=== PATIENT | female | born 1980 | race Caucasian/White ===

== ENCOUNTER → 2016-11-14 | Outpatient (CLI) | payer OTHER ==
[2016-11-14 19:42] LABS: THYROID PEROXIDASE ANTIBODY < 28.0 U/ML (<60.0)
[2016-11-14 20:06] LABS: FREE T4 1.19 NG/DL (0.76-1.46)
== END ==
LOC: M SMT 11:48
PROVIDERS: ATTEND Physician Assistant
DX: E03.9 Hypothyroidism, unspecified (principal)

== ENCOUNTER → 2016-11-23 | Outpatient (CLI) | payer OTHER ==
--- NOTE | 2016-11-23 11:25 | REP ---
MRI LEFT KNEE: TECHNIQUE: Axial proton density fat saturation, sagittal proton density T2 STIR, water excitation, coronal proton density, proton density fat saturation. There is a somewhat complex tear of the posterior horn of the medial meniscus. The lateral meniscus appears intact. The cruciate and collateral ligaments are intact. The extensor mechanism is intact. 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 There is moderate chondromalacia along the medial femoral condyle. There is otherwise mild global chondromalacia without focal osteochrondral defect. There is no significant marrow edema. There is no occult fracture. There is a small joint effusion. A small amount of fluid extends into the medial popliteal fossa with a relatively thin band of fluid having a craniocaudal dimension of about 9 cm, but a thickness of only about 1 cm maximally. IMPRESSION: Complex tear posterior horn medial meniscus. Cruciate and collateral ligaments intact. Chondromalacia as above, most significantly along the medial patellar facet and medial femoral condyle. Small joint effusion with a thin band of fluid in the medial popliteal fossa. Signed by Richar Obrien MD 11/23/2016 05:36 P
== END ==
LOC: M RAD 08:56
PROVIDERS: ATTEND Orthopaedic Surgery
DX: S83.209A Unspecified tear of unspecified meniscus, current injury, unspecified knee, initial encounter (principal)

== ENCOUNTER → 2017-10-28 | Outpatient (CLI) | payer OTHER ==
[2017-10-28 14:48] LABS: BASO % 0.2 % (0.0-1.0); EOS # 0.1 10^3/uL (0.0-0.50); EOS % 1.2 % (0.0-3.0); HEMATOCRIT 42.3 % (36.0-47.0); HEMOGLOBIN 13.8 g/dl (12.0-16.0); IMMATURE GRANULOCYTE % 0.2 % (0-3.0); LYMPH # 3.7 10^3/uL (1.5-4.5); LYMPH % 41.2 % (24.0-44.0); MEAN CORPUSCULAR HEMOGLOBIN 28.2 pg (27.0-33.0); MEAN CORPUSCULAR HGB CONC 32.6 g/dl (32.0-36.5); MEAN CORPUSCULAR VOLUME 86.3 fl (80.0-96.0); MONO # 0.6 10^3/uL (0.0-0.8); MONO % 6.3 % (0.0-5.0); NEUTROPHILS # 4.5 10^3/uL (1.8-7.7); NEUTROPHILS % 50.9 % (36.0-66.0); PLATELET COUNT, AUTOMATED 369 10^3/uL (150-450); WHITE BLOOD COUNT 8.9 10^3/uL (4.0-10.0)
[2017-10-28 15:17] LABS: ALBUMIN 3.7 GM/DL (3.2-5.2); ALBUMIN/GLOBULIN RATIO 1.09 (1.00-1.93); ALKALINE PHOSPHATASE 73 U/L (45-117); ALT/SGPT 19 U/L (12-78); ANION GAP 6 MEQ/L (8-16); AST/SGOT 16 U/L (7-37); BILIRUBIN,TOTAL 0.5 MG/DL (0.2-1.0); BLOOD UREA NITROGEN 12 MG/DL (7-18); CALCIUM LEVEL 8.5 MG/DL (8.5-10.1); CARBON DIOXIDE LEVEL 27 MEQ/L (21-32); CHLORIDE LEVEL 105 MEQ/L (98-107); CHOLESTEROL LEVEL 175 MG/DL (<200); CHOLESTEROL RISK RATIO 3.723 (<5); CREATININE FOR GFR 0.92 MG/DL (0.55-1.30); FREE T4 1.09 NG/DL (0.76-1.46); GLOMERULAR FILTRATION RATE > 60.0 (>60); GLUCOSE, FASTING 76 MG/DL (70-100); HDL CHOLESTEROL 47 MG/DL (>40); LDL CHOLESTEROL 109.4 MG/DL (<100); NON-HDL-C 128 MG/DL; POTASSIUM SERUM 4.3 MEQ/L (3.5-5.1); SODIUM LEVEL 138 MEQ/L (136-145); TOTAL PROTEIN 7.1 GM/DL (6.4-8.2); TRIGLYCERIDES LEVEL 93 MG/DL (<150)
[2017-10-28 15:25] LABS: TOTAL 25(OH) VITAMIN D 16.5 NG/ML (30.0-100.0)
== END ==
LOC: M LAB 13:46
DX: Z00.00 Encounter for general adult medical examination without abnormal findings (principal); Z13.220 Encounter for screening for lipoid disorders; Z13.21 Encounter for screening for nutritional disorder; E04.2 Nontoxic multinodular goiter; E03.9 Hypothyroidism, unspecified
CPT/HCPCS: 76536

== ENCOUNTER → 2017-12-19 | Outpatient (CLI) | payer OTHER ==
[2017-12-19 14:28] LABS: FREE T4 1.28 NG/DL (0.76-1.46)
== END ==
LOC: M LAB 12:42
DX: E03.9 Hypothyroidism, unspecified (principal)
CPT/HCPCS: 84443

== ENCOUNTER → 2018-03-12 | Outpatient (CLI) | payer OTHER ==
[2018-03-12 13:56] LABS: FREE T4 1.31 NG/DL (0.76-1.46)
[2018-03-12 14:12] LABS: THYROID PEROXIDASE ANTIBODY < 28.0 U/ML (<60.0)
[2018-03-14 09:39] LABS: TSH RECEPTOR ASSAY <0.50 IU/L (0.00-1.75)
== END ==
LOC: M SMT 10:29
DX: E03.9 Hypothyroidism, unspecified (principal)
CPT/HCPCS: 84443

== ENCOUNTER → 2018-05-13 | Outpatient (CLI) | payer OTHER ==
[2018-05-13 13:24] LABS: BASO % 0.4 % (0.0-1.0); EOS # 0.1 10^3/uL (0.0-0.50); EOS % 1.2 % (0.0-3.0); HEMATOCRIT 45.6 % (36.0-47.0); HEMOGLOBIN 14.9 g/dl (12.0-15.5); IMMATURE GRANULOCYTE % 0.2 % (0-3.0); LYMPH % 35.4 % (24.0-44.0); MEAN CORPUSCULAR HEMOGLOBIN 28.2 pg (27.0-33.0); MEAN CORPUSCULAR HGB CONC 32.7 g/dl (32.0-36.5); MEAN CORPUSCULAR VOLUME 86.2 fl (80.0-96.0); MONO # 0.5 10^3/uL (0.0-0.8); MONO % 6.5 % (0.0-5.0); NEUTROPHILS # 4.7 10^3/uL (1.8-7.7); NEUTROPHILS % 56.3 % (36.0-66.0); PLATELET COUNT, AUTOMATED 397 10^3/uL (150-450); RED BLOOD COUNT 5.29 10^6/uL (4.00-5.40); RED CELL DISTRIBUTION WIDTH 12.3 % (11.5-14.5); WHITE BLOOD COUNT 8.3 10^3/uL (4.0-10.0)
[2018-05-13 14:44] LABS: ANION GAP 11 MEQ/L (8-16); BLOOD UREA NITROGEN 14 MG/DL (7-18); CALCIUM LEVEL 9.5 MG/DL (8.5-10.1); CARBON DIOXIDE LEVEL 26 MEQ/L (21-32); CHLORIDE LEVEL 102 MEQ/L (98-107); CHOLESTEROL LEVEL 215 MG/DL (<200); CHOLESTEROL RISK RATIO 4.134 (<5); CREATININE FOR GFR 0.98 MG/DL (0.55-1.30); FREE T4 1.54 NG/DL (0.76-1.46); GLOMERULAR FILTRATION RATE > 60.0 (>60); GLUCOSE, FASTING 82 MG/DL (70-100); HDL CHOLESTEROL 52 MG/DL (>40); LDL CHOLESTEROL 143 MG/DL (<100); NON-HDL-C 163 MG/DL; POTASSIUM SERUM 4.6 MEQ/L (3.5-5.1); SODIUM LEVEL 139 MEQ/L (136-145); TOTAL 25(OH) VITAMIN D 38.7 NG/ML (30.0-100.0); TRIGLYCERIDES LEVEL 101 MG/DL (<150)
== END ==
LOC: M SMT 10:23
DX: E03.9 Hypothyroidism, unspecified (principal); E55.9 Vitamin D deficiency, unspecified
CPT/HCPCS: 84443

== ENCOUNTER → 2018-09-26 | Outpatient (CLI) | payer OTHER ==
[2018-09-26 13:34] LABS: FREE T4 1.5 NG/DL (0.76-1.46); THYROID STIMULATING HORMONE 1.04 uIU/ML (0.358-3.740)
[2018-09-26 13:48] LABS: TOTAL 25(OH) VITAMIN D 49.7 NG/ML (30.0-100.0)
== END ==
LOC: M SMT 10:45
PROVIDERS: ATTEND Family Medicine
DX: E03.9 Hypothyroidism, unspecified (principal); E55.9 Vitamin D deficiency, unspecified

== ENCOUNTER → 2019-04-09 | Outpatient (CLI) | payer OTHER ==
[2019-04-09 14:03] LABS: FREE T4 1.29 NG/DL (0.76-1.46); THYROID STIMULATING HORMONE 1.45 uIU/ML (0.358-3.740)
== END ==
LOC: M SMT 11:11
PROVIDERS: ATTEND Physician Assistant
DX: E03.9 Hypothyroidism, unspecified (principal)

== ENCOUNTER → 2019-12-14 | Outpatient (REF) | payer OTHER ==
[2019-12-14 12:30] LABS: FREE T4 1.08 NG/DL (0.76-1.46); THYROID STIMULATING HORMONE 1.66 uIU/ML (0.358-3.740)
== END ==
LOC: M PLALAB 09:44
PROVIDERS: ATTEND Family Medicine
DX: E03.9 Hypothyroidism, unspecified (principal); E55.9 Vitamin D deficiency, unspecified

== ENCOUNTER → 2020-06-16 | Outpatient (CLI) | payer OTHER ==
[2020-06-16 10:07] LABS: FREE T4 1.21 NG/DL (0.76-1.46); THYROID STIMULATING HORMONE 2.13 uIU/ML (0.358-3.740)
== END ==
LOC: M LAB 08:45
PROVIDERS: ATTEND Family Medicine
DX: E03.9 Hypothyroidism, unspecified (principal); L65.9 Nonscarring hair loss, unspecified

== ENCOUNTER 2020-08-08 19:19 | Emergency (ER) | payer OTHER ==
[~2020-08-08] VITALS: Ht 167.6 cm; Wt 135.0 kg
[2020-08-08] MEDS ORDERED: METH1TAB40 (19:32)
[2020-08-08] MEDS ORDERED: PHEN37.52 (19:32)
[2020-08-08] MEDS ORDERED: METF500T13 (19:32)
[2020-08-08] MEDS ORDERED: NAPR-885 (19:32)
[2020-08-08] MEDS ORDERED: NITR100C2 (19:32)
[2020-08-08] MEDS ORDERED: SYNT125T (19:32)
[2020-08-08] MEDS ORDERED: DICL1GEL3 (19:32)
[2020-08-08 21:59] LABS: BASO % 0.4 % (0.0-1.0); EOS # 0.2 10^3/uL (0.0-0.5); EOS % 1.6 % (0.0-3.0); HEMATOCRIT 44.2 % (36.0-47.0); HEMOGLOBIN 13.8 g/dl (12.0-15.5); LYMPH # 4.7 10^3/uL (1.5-5.0); LYMPH % 41.8 % (24.0-44.0); MEAN CORPUSCULAR HEMOGLOBIN 27.1 pg (27.0-33.0); MEAN CORPUSCULAR HGB CONC 31.2 g/dl (32.0-36.5); MEAN CORPUSCULAR VOLUME 86.7 fl (80.0-96.0); MONO # 0.8 10^3/uL (0.0-0.8); MONO % 6.6 % (0.0-5.0); NEUTROPHILS # 5.6 10^3/uL (1.5-8.5); NEUTROPHILS % 49.3 % (36.0-66.0); PLATELET COUNT, AUTOMATED 412 10^3/uL (150-450); WHITE BLOOD COUNT 11.3 10^3/uL (4.0-10.0)
[2020-08-08 22:31] LABS: ALBUMIN 3.8 GM/DL (3.2-5.2); ALT/SGPT 36 U/L (12-78); BILIRUBIN,DIRECT < 0.1 MG/DL (0.0-0.2); BILIRUBIN,TOTAL 0.3 MG/DL (0.2-1.0); BLOOD UREA NITROGEN 11 MG/DL (7-18); CARBON DIOXIDE LEVEL 29 MEQ/L (21-32); CHLORIDE LEVEL 107 MEQ/L (98-107); GLOMERULAR FILTRATION RATE > 60.0 (>60); GLUCOSE, FASTING 82 MG/DL (70-100); LIPASE 76 U/L (73-393); POTASSIUM SERUM 4.2 MEQ/L (3.5-5.1); SODIUM LEVEL 139 MEQ/L (136-145); TOTAL PROTEIN 7.5 GM/DL (6.4-8.2)
[2020-08-08 22:32] LABS: HCG, SERUM QUALITATIVE NEGATIVE (NEGATIVE)
[2020-08-08] MEDS ORDERED: MORPHINE 4 MG/ML 1ML VIAL/SYRINGE (J2270) IV ONE (23:00)
--- NOTE | 2020-08-08 23:21 | REPVR ---
PROCEDURE INFORMATION: Exam: CT Abdomen And Pelvis Without Contrast Exam date and time: 08/08/2020 10:55 PM Age: 40 years old Clinical indication: Abdominal pain; Flank; Left; Additional info: Flank pain TECHNIQUE: Imaging protocol: Computed tomography of the abdomen and pelvis without contrast. Radiation optimization: All CT scans at this facility use at least one of these dose optimization techniques: automated exposure control; mA and/or kV adjustment per patient size (includes targeted exams where dose is matched to clinical indication); or iterative reconstruction. COMPARISON: CT ABD PELVIS WITH CONTRAST 12/27/2014 10:43 PM FINDINGS: Liver: Normal. No mass. Gallbladder and bile ducts: Normal. No calcified stones. No ductal dilation. Pancreas: Normal. No ductal dilation. Spleen: Normal. No splenomegaly. Adrenal glands: Normal. No mass. Kidneys and ureters: No renal calculi. Stomach and bowel: Unremarkable. No obstruction. No mucosal thickening. Appendix: A normal small appendix is seen. Intraperitoneal space: Unremarkable. No free air. No significant fluid collection. Vasculature: Unremarkable. No abdominal aortic aneurysm. Lymph nodes: Unremarkable. No enlarged lymph nodes. Urinary bladder: Unremarkable as visualized. Reproductive: Unremarkable as visualized. Bones/joints: Slight anterior wedge configuration of T11 which appears to be chronic and is similar to the prior study of 12/27/2014. Soft tissues: Minimal fat filled umbilical hernia. IMPRESSION: There has been little change from 12/27/2014. No acute interval process is identified. No renal or ureteral calculi are evident and there is no evidence of obstructive uropathy. Electronically signed by: Bean Bautista On 08/08/2020 23:21:47 PM
[2020-08-08] MEDS ORDERED: OXYCODONE/APAP 5MG/325MG(BULK FOR ED) 1 TABLET PO ONE (23:30)
[2020-08-08] MEDS ORDERED: CIPROFLOXACIN 400 MG in IV 1 EA IV ONE (23:30)
[2020-08-08] MEDS ORDERED: CIPR-249 PO (23:32)
[2020-08-08] MEDS ORDERED: PERC5TAB12 PO (23:34)
[2020-08-09 00:54] VITALS: BP 131/81
== END 2020-08-09 00:58 | disposition home or self-care (01) ==
LOC: M ED 19:19
DX: N10 Acute pyelonephritis (principal); I34.1 Nonrheumatic mitral (valve) prolapse; Z79.84 Long term (current) use of oral hypoglycemic drugs; Z79.899 Other long term (current) drug therapy; Z88.0 Allergy status to penicillin; Z88.1 Allergy status to other antibiotic agents; Z88.2 Allergy status to sulfonamides
CPT/HCPCS: 74176; 80048; 80076; 81001; 83690; 84703; 85025; 87086; 96365; 96375; 99284; J0744; J2270

== ENCOUNTER 2020-08-10 09:09 | Emergency (ER) | payer OTHER ==
[~2020-08-10] VITALS: Ht 167.6 cm; Wt 135.5 kg
[~2020-08-10 09:09] MED LIST: CIPR-249 PO; DICL1GEL3; METF500T13; METH1TAB40; NAPR-885; NITR100C2; PERC5TAB12 PO; PHEN37.52; SYNT125T
[2020-08-10] MEDS ORDERED: MORPHINE 4 MG/ML 1ML VIAL/SYRINGE (J2270) IV ONE (09:45)
[2020-08-10] MEDS ORDERED: NS 1,000 ML IV ONE (09:45)
[2020-08-10 10:21] LABS: BASO % 0.4 % (0.0-1.0); EOS # 0.1 10^3/uL (0.0-0.5); EOS % 1.3 % (0.0-3.0); HEMATOCRIT 44.1 % (36.0-47.0); HEMOGLOBIN 13.7 g/dl (12.0-15.5); LYMPH # 3.5 10^3/uL (1.5-5.0); LYMPH % 41.4 % (24.0-44.0); MEAN CORPUSCULAR HEMOGLOBIN 26.6 pg (27.0-33.0); MEAN CORPUSCULAR HGB CONC 31.1 g/dl (32.0-36.5); MEAN CORPUSCULAR VOLUME 85.6 fl (80.0-96.0); MONO # 0.6 10^3/uL (0.0-0.8); MONO % 7.1 % (0.0-5.0); NEUTROPHILS # 4.2 10^3/uL (1.5-8.5); NEUTROPHILS % 49.4 % (36.0-66.0); PLATELET COUNT, AUTOMATED 433 10^3/uL (150-450); RED BLOOD COUNT 5.15 10^6/uL (4.00-5.40); WHITE BLOOD COUNT 8.5 10^3/uL (4.0-10.0)
[2020-08-10 10:37] LABS: BLOOD UREA NITROGEN 11 MG/DL (7-18); CALCIUM LEVEL 8.9 MG/DL (8.5-10.1); CARBON DIOXIDE LEVEL 27 MEQ/L (21-32); CHLORIDE LEVEL 108 MEQ/L (98-107); GLOMERULAR FILTRATION RATE > 60.0 (>60); GLUCOSE, FASTING 85 MG/DL (70-100); POTASSIUM SERUM 4.2 MEQ/L (3.5-5.1); SODIUM LEVEL 139 MEQ/L (136-145)
[2020-08-10] MEDS ORDERED: MORPHINE 2 MG/ML 1ML VIAL (J2270) IV ONE (11:45)
[2020-08-10] MEDS ORDERED: ISOVUE-370 76% 100ML VIAL As Ordered ONE (11:56)
--- NOTE | 2020-08-10 12:27 | REP ---
INDICATION: Flank pain COMPARISON: 08/08/2020. TECHNIQUE: CT Scan of the abdomen and pelvis was performed with intravenous administration of 100 cc of Isovue 370, without oral contrast. FINDINGS: Lung bases: Unremarkable. Liver: Normal Gallbladder: Unremarkable. Spleen: Normal. Adrenals: Normal. Pancreas: Normal. Kidneys: Normal. Small and large bowel: Unremarkable. Free fluid: None. Abdominal aorta: No aneurysm or dissection. Adenopathy: None. Appendix: Not inflamed. Osseous structures: Unremarkable. Pelvis: No mass. IMPRESSION: Negative CT abdomen and pelvis. <Electronically signed by Richar Obrien > 08/10/20 1303
[2020-08-10] MEDS ORDERED: KETOROLAC 30 MG/ML 1ML VIAL IV ONE (13:00)
[2020-08-10 13:48] VITALS: BP 117/57
== END 2020-08-10 13:51 | disposition home or self-care (01) ==
LOC: M ED 09:09
DX: N10 Acute pyelonephritis (principal); I34.1 Nonrheumatic mitral (valve) prolapse; E06.3 Autoimmune thyroiditis; Z87.448 Personal history of other diseases of urinary system; Z79.84 Long term (current) use of oral hypoglycemic drugs; Z79.899 Other long term (current) drug therapy; Z88.0 Allergy status to penicillin; Z88.2 Allergy status to sulfonamides
CPT/HCPCS: 74177; 80048; 81001; 83605; 85025; 87086; 96361; 96374; 96375; 96376; 99284; J1885; J2270; Q9967

== ENCOUNTER 2020-08-16 13:52 | Emergency (ER) | payer OTHER ==
[~2020-08-16] VITALS: Ht 167.6 cm; Wt 137.1 kg
[2020-08-16] MEDS ORDERED: KETO10TAB PO (13:58)
[2020-08-16] MEDS ORDERED: ACET1TAB55 PO (13:58)
[2020-08-16] MEDS ORDERED: NS 1,000 ML IV ONE (15:00)
[2020-08-16] MEDS ORDERED: LIDOCAINE 5% (LIDODERM) PATCH TD ONE (15:15)
[2020-08-16] MEDS ORDERED: ACETAMINOPHEN 500 MG TAB PO ONE (15:15)
[2020-08-16 15:41] LABS: BASO # 0.1 10^3/uL (0.0-0.2); BASO % 0.5 % (0.0-1.0); EOS # 0.2 10^3/uL (0.0-0.5); EOS % 1.5 % (0.0-3.0); HEMATOCRIT 45.1 % (36.0-47.0); HEMOGLOBIN 13.8 g/dl (12.0-15.5); LYMPH # 3.5 10^3/uL (1.5-5.0); LYMPH % 35.4 % (24.0-44.0); MEAN CORPUSCULAR HEMOGLOBIN 26.6 pg (27.0-33.0); MEAN CORPUSCULAR HGB CONC 30.6 g/dl (32.0-36.5); MEAN CORPUSCULAR VOLUME 86.9 fl (80.0-96.0); MONO # 0.6 10^3/uL (0.0-0.8); MONO % 6.3 % (0.0-5.0); NEUTROPHILS # 5.5 10^3/uL (1.5-8.5); PLATELET COUNT, AUTOMATED 384 10^3/uL (150-450); RED BLOOD COUNT 5.19 10^6/uL (4.00-5.40); WHITE BLOOD COUNT 9.8 10^3/uL (4.0-10.0)
[2020-08-16] MEDS ORDERED: KETOROLAC 30 MG/ML 1ML VIAL IV ONE (15:45)
[2020-08-16 16:12] LABS: ALBUMIN 3.8 GM/DL (3.2-5.2); BILIRUBIN,DIRECT 0.1 MG/DL (0.0-0.2); BILIRUBIN,TOTAL 0.5 MG/DL (0.2-1.0); TOTAL PROTEIN 7.4 GM/DL (6.4-8.2)
--- NOTE | 2020-08-16 16:37 | REP ---
INDICATION: left flank pain, recent tx pyelonephritis, incr. pain 2 days COMPARISON: None TECHNIQUE: Real time francisco scale ultrasound examination using curved array transducer. FINDINGS: Bilateral kidneys are normal in contour, size, echogenicity, and reniform shape without hydronephrosis, nephrolithiasis, cystic or renal mass lesion. No perinephric fluid collection. Right kidney measures 9.7 x 5.5 x 5.6 cm. Left kidney measures 9.8 x 5.1 x 4.9 cm. Bladder is normal and bilateral ureteral jets are identified. IMPRESSION: 1. Normal renal ultrasound. <Electronically signed by Aleksandar Jaime > 08/16/20 [id number]
[2020-08-16] MEDS ORDERED: ONDANSETRON 4MG/2ML VIAL IV ONE (16:45)
[2020-08-16] MEDS ORDERED: MORPHINE 4 MG/ML 1ML VIAL/SYRINGE (J2270) IV ONE (16:45)
[2020-08-16] MEDS ORDERED: diazePAM 10MG/2ML SYRINGE (J3360 PER 5MG) IV ONE (17:15)
[2020-08-16] MEDS ORDERED: ISOVUE-370 76% 100ML VIAL As Ordered ONE (17:21)
--- NOTE | 2020-08-16 17:43 | REPVR ---
PROCEDURE INFORMATION: Exam: CT Abdomen And Pelvis With Contrast Exam date and time: 08/16/2020 5:30 PM Age: 40 years old Clinical indication: Abdominal pain; Localized; Left; Additional info: L flank pain, persistant x 10days, pyelo treated TECHNIQUE: Imaging protocol: Computed tomography of the abdomen and pelvis with intravenous contrast. Radiation optimization: All CT scans at this facility use at least one of these dose optimization techniques: automated exposure control; mA and/or kV adjustment per patient size (includes targeted exams where dose is matched to clinical indication); or iterative reconstruction. Contrast material: ISOVUE 370; Contrast volume: 100 ml; Contrast route: INTRAVENOUS (IV); COMPARISON: CT ABD/PEL W/IV CONTRAST ONLY 08/10/2020 11:59 AM FINDINGS: Liver: Normal. No mass. Gallbladder and bile ducts: Normal. No calcified stones. No ductal dilation. Pancreas: Normal. No ductal dilation. Spleen: Normal. No splenomegaly. Adrenal glands: Normal. No mass. Kidneys and ureters: Normal. No hydronephrosis. Stomach and bowel: Unremarkable. No obstruction. No mucosal thickening. Appendix: No evidence of appendicitis. Intraperitoneal space: Unremarkable. No free air. No significant fluid collection. Vasculature: Unremarkable. No abdominal aortic aneurysm. Lymph nodes: Unremarkable. No enlarged lymph nodes. Urinary bladder: Unremarkable as visualized. Reproductive: Unremarkable as visualized. Bones/joints: Unremarkable. No acute fracture. Soft tissues: Diastasis in the upper rectus sheath without a manan hernia. IMPRESSION: No acute findings. Electronically signed by: Danish Vasuqez On 08/16/2020 17:43:18 PM
[2020-08-16] MEDS ORDERED: ASPE4PAD TOP (19:10)
[2020-08-16] MEDS ORDERED: VALI10TA PO (19:10)
[2020-08-16 19:29] VITALS: BP 137/90
[2020-08-16] MEDS ORDERED: diazePAM 10 MG TAB PO ONE (19:30)
[2020-08-16] MEDS ORDERED: **NOTE PATIENT COMMENT** MISC XX SCH (21:00)
== END 2020-08-16 19:25 | disposition home or self-care (01) ==
LOC: M ED 13:52
DX: R10.9 Unspecified abdominal pain (principal); M54.5 Low back pain; E06.3 Autoimmune thyroiditis; Z79.899 Other long term (current) drug therapy; Z88.0 Allergy status to penicillin; Z88.1 Allergy status to other antibiotic agents; Z88.2 Allergy status to sulfonamides
CPT/HCPCS: 74177; 76775; 80047; 80076; 81001; 83605; 83690; 85025; 87086; 96361; 96374; 96375; 99284; J1885; J2270; J3360; Q9967

== ENCOUNTER → 2020-08-30 | Outpatient (REF) | payer OTHER ==
[~2020-08-30] MED LIST changes: +ACET1TAB55 PO; +ASPE4PAD TOP; +KETO10TAB PO; +VALI10TA PO
[2020-08-30 14:07] LABS: APPEARANCE, URINE HAZY (CLEAR); BACTERIA, URINE AUTO NEGATIVE (NEGATIVE); BILIRUBIN, URINE AUTO NEGATIVE (NEGATIVE); BLOOD, URINE BLOOD NEGATIVE (NEGATIVE); COLOR, URINE YELLOW (YELLOW); GLUCOSE, URINE (UA) AUTO NEGATIVE (NEGATIVE); KETONE, URINE AUTO NEGATIVE (NEGATIVE); LEUKOCYTE ESTERASE, URINE AUTO 2+ (NEGATIVE); NITRITE, URINE AUTO NEGATIVE (NEGATIVE); PROTEIN, URINE AUTO NEGATIVE (NEGATIVE); RBC, URINE AUTO 2 /HPF (0-3); SQUAMOUS EPITHELIAL CELL UR AU 3 /HPF (0-6); UROBILINOGEN, URINE AUTO 0.2 mg/dL (0.0-2.0); WBC, URINE AUTO 11 /HPF (0-3)
== END ==
LOC: M SFHCPLAZ 13:27
PROVIDERS: ATTEND Family Medicine
DX: R10.9 Unspecified abdominal pain (principal)

== ENCOUNTER → 2020-09-29 | Outpatient (REF) | payer OTHER ==
[~2020-09-29] MED LIST changes: +METH-1164; -METH1TAB40
[2020-09-29 14:05] LABS: APPEARANCE, URINE CLEAR (CLEAR); BACTERIA, URINE AUTO NEGATIVE (NEGATIVE); BILIRUBIN, URINE AUTO NEGATIVE (NEGATIVE); BLOOD, URINE BLOOD NEGATIVE (NEGATIVE); COLOR, URINE YELLOW (YELLOW); GLUCOSE, URINE (UA) AUTO NEGATIVE (NEGATIVE); KETONE, URINE AUTO NEGATIVE (NEGATIVE); LEUKOCYTE ESTERASE, URINE AUTO NEGATIVE (NEGATIVE); NITRITE, URINE AUTO NEGATIVE (NEGATIVE); PROTEIN, URINE AUTO NEGATIVE (NEGATIVE); RBC, URINE AUTO 2 /HPF (0-3); SPECIFIC GRAVITY URINE AUTO 1.013 (1.002-1.035); SQUAMOUS EPITHELIAL CELL UR AU 3 /HPF (0-6); UROBILINOGEN, URINE AUTO 0.2 mg/dL (0.0-2.0); WBC, URINE AUTO 1 /HPF (0-3)
== END ==
LOC: M SFHCPLAZ 13:39
PROVIDERS: ATTEND Family Medicine
DX: R10.9 Unspecified abdominal pain (principal)

== ENCOUNTER → 2020-11-15 | Outpatient (REF) | payer OTHER | LOC: M SFHCWAGY 13:56 | PROVIDERS: ATTEND Nurse Practitioner Women's Health | DX: Z12.4 Encounter for screening for malignant neoplasm of cervix (principal) ==

== ENCOUNTER → 2020-12-09 | Outpatient (CLI) | payer OTHER ==
[~2020-12-09] MED LIST changes: +ISOVUE-300 61% 50ML VIAL As Ordered ONE; +PROHANCE 279.3MG/ML 15ML VIAL As Ordered ONE; +PROHANCE 279.3MG/ML 5ML VIAL As Ordered ONE
--- NOTE | 2020-12-09 10:37 | REP ---
INDICATION: RT SHOULDER SUPERIOR GLENOID LABRUM LESION. COMPARISON: Comparison MR arthrography right shoulder October 21, 2018.. TECHNIQUE: The injection procedure is performed and dictated separately. Pre and post intra-articular gadolinium enhanced saline injected imaging is acquired. Imaging planes include axial, oblique coronal, oblique sagittal and ABER projection images. T1 and T2-weighted scans are included with and without fat saturation. FINDINGS: Pre-injection imaging shows subcortical cyst formation in the superolateral humeral head. This is similar to the prior study. There is a small quantity of fluid in the acromioclavicular joint. A subacromial subdeltoid bursal effusion is again noted similar to the prior study. There is moderate heterogeneous increased signal intensity and some swelling in the distal supraspinatus tendon consistent with tendinosis. No full-thickness cuff tear is appreciated. The subscapularis and infraspinatus tendons appear intact. There is increased signal intensity in the and some swelling in the genu of the biceps tendon similar to the prior study consistent with biceps tendinosis. Mild fraying of the anterior labrum cartilage is seen. There is mild irregularity of the superior labrum cartilage although this is less conspicuous than on the prior study. Post injection imaging shows good filling and enhancement of the glenohumeral articulation. T1 fat sat post injection images show no evidence of full-thickness cuff tear. There is no evidence of loose body. ABER images show no evidence of displaced anterior labral tear, slight fraying. No articular cartilaginous lesion is seen. IMPRESSION: Moderate tendinosis in the supraspinatus and biceps tendons. The previously noted superior labral tear is less conspicuous. Some fraying of the anterior labral cartilage is seen. Subacromial subdeltoid bursal effusion. <Electronically signed by Richie Aranda > 12/09/20 1033
--- NOTE | 2020-12-09 11:03 | REP ---
INDICATION: RT SHOULDER SUPERIOR GLENOID LABRUM LESION. COMPARISON: None TECHNIQUE: The procedure was performed by DOTTIE Elkins, under the direct supervision of Dr. Aranda. The benefits and risks of the procedure were explained to the patient, and an informed consent was obtained. Directly prior to the start of the procedure, a formal time-out was completed in the procedure room. The right glenohumeral joint space was localized using fluoroscopic guidance. The skin was prepped and draped in a sterile fashion. Approximately 5 mL of 1% Lidocaine 10 mg/ml was used as a local anesthetic. Using fluoroscopic guidance, a #22 gauge spinal needle was inserted and advanced into the right glenohumeral joint space. Approximately 1 mL of Isovue 300 was injected to verify placement. Twelve mL of a solution containing 20 mL of sterile saline and 0.15 mL of ProHance was injected into the joint space. The needle was removed and the patient was taken to MRI for post procedural imaging. FINDINGS: The patient tolerated the procedure well and there were no immediate complications. IMPRESSION: Fluoroscopic guided MRI arthrogram injection. 0.1 minutes of fluoroscopy time was utilized for this procedure. Some fluoroscopic images are performed with last image hold technology. These images require no additional radiation. <Electronically signed by Ciarra Alfaro > 12/09/20 1031 <Electronically signed by Richie Aranda > 12/09/20 1056
== END ==
LOC: M RADPRO 08:16
PROVIDERS: ATTEND Physician Assistant
DX: M75.21 Bicipital tendinitis, right shoulder (principal); S43.431D Superior glenoid labrum lesion of right shoulder, subsequent encounter; X58.XXXD Exposure to other specified factors, subsequent encounter; Y93.9 Activity, unspecified; Y92.9 Unspecified place or not applicable; Y99.9 Unspecified external cause status
CPT/HCPCS: 23350; 73223; 77002; A9576; Q9967

== ENCOUNTER → 2020-12-27 | Outpatient (REF) | payer OTHER ==
[~2020-12-27] MED LIST changes: -ISOVUE-300 61% 50ML VIAL As Ordered ONE; -PROHANCE 279.3MG/ML 15ML VIAL As Ordered ONE; -PROHANCE 279.3MG/ML 5ML VIAL As Ordered ONE
[2020-12-27 14:09] LABS: HEMOGLOBIN A1c 5.1 %
[2020-12-27 14:29] LABS: C REACTIVE PROTEIN QUANTITATIV 1.61 MG/DL (0.00-0.30); FREE T4 1.39 NG/DL (0.76-1.46); RHEUMATOID FACTOR QUANT < 10.0 IU/ML (<15.0)
[2020-12-28 23:10] LABS: ANTINUCLEAR ANTIBODIES DIRECT Negative (Negative); CYCLIC CITRULLINATED PEPTIDE 6 units (0-19)
== END ==
LOC: M SFHCPLAZ 11:06
PROVIDERS: ATTEND Family Medicine
DX: Z13.1 Encounter for screening for diabetes mellitus (principal); R21 Rash and other nonspecific skin eruption; M25.50 Pain in unspecified joint

== ENCOUNTER → 2021-08-10 | Outpatient (CLI) | payer OTHER ==
[~2021-08-10] MED LIST changes: -PHEN37.52; +PHEN37.58
--- NOTE | 2021-08-10 09:49 | REP ---
INDICATION: IMPINGEMENT SYNDROME OF LEFT SHOULDER. COMPARISON: None. TECHNIQUE: Coronal oblique T1 and fat suppressed T2. Sagittal oblique fat suppressed T2. Axial [id number] and T2 FLASH. FINDINGS: There is mild hypertrophic degenerative change seen involving the acromioclavicular joint. The acromion process is type 2. Patchy and linear T2 hyper signal is seen in the supraspinatus tendon. There is no musculotendinous retraction or significant atrophy. There is minimal linear hyper signal in the subscapularis tendon. The signal within the infraspinatus and teres minor tendons is within normal limits. The biceps tendon resides within the bicipital groove. There is a slight glenohumeral joint effusion. There is a moderate to large amount of fluid in the subcoracoid recess. There is no evidence of coracohumeral or coracoacromial ligamentous thickening. There is abnormal linear signal seen in the superior labrum anterior to posterior which involves the biceps labral complex. Additionally, there is abnormal linear signal in the posterior labrum. IMPRESSION: 1. There is evidence of a SLAP tear which includes the biceps labral complex. 2. There is a posterior labral tear. 3. There is supraspinatus tendinitis/tendinosis. 4. Other findings as described above. <Electronically signed by Dale Johnson > 08/10/21 [id number]
== END ==
LOC: M PLAIMG 08:40
PROVIDERS: ATTEND Physician Assistant
DX: M75.92 Shoulder lesion, unspecified, left shoulder (principal)

== ENCOUNTER 2021-11-05 09:29 | Emergency (ER) | payer OTHER ==
[~2021-11-05] VITALS: Ht 167.6 cm; Wt 127.3 kg
[2021-11-05 09:29] VITALS: BP 121/76
[2021-11-05] MEDS ORDERED: NAPR-885 PO (09:35)
== END 2021-11-05 10:17 | disposition left against medical advice (07) ==
LOC: M ED 09:29
DX: Z53.21 Procedure and treatment not carried out due to patient leaving prior to being seen by health care provider (principal)

== ENCOUNTER → 2021-11-08 | Outpatient (REF) | payer OTHER ==
[~2021-11-08] MED LIST changes: +NAPR-885 PO
[2021-11-09 12:08] LABS: CREATININE, URINE 269.8 mg/dL (20.0-300.0)
== END ==
LOC: M SFHCPLAZ 12:47
PROVIDERS: ATTEND Family Medicine
DX: Z51.81 Encounter for therapeutic drug level monitoring (principal)

== ENCOUNTER → 2022-02-21 | Outpatient (CLI) | payer OTHER | LOC: M WHC 14:53 | PROVIDERS: ATTEND Physician Assistant | DX: Z12.31 Encounter for screening mammogram for malignant neoplasm of breast (principal) ==

== ENCOUNTER → 2022-03-26 | Outpatient (CLI) | payer OTHER ==
[2022-03-27 00:05] LABS: HEMOGLOBIN A1c 5.1 %
== END ==
LOC: M LAB 12:23
PROVIDERS: ATTEND Surgery
DX: Z86.39 Personal history of other endocrine, nutritional and metabolic disease (principal)

== ENCOUNTER → 2022-03-26 | Outpatient (CLI) | payer OTHER ==
[2022-03-26 13:28] LABS: BASO % 0.4 % (0.0-1.0); EOS # 0.1 10^3/uL (0.0-0.5); HEMATOCRIT 43.9 % (36.0-47.0); HEMOGLOBIN 13.7 g/dl (12.0-15.5); LYMPH # 3.9 10^3/uL (1.5-5.0); LYMPH % 36.7 % (24.0-44.0); MEAN CORPUSCULAR HEMOGLOBIN 27.1 pg (27.0-33.0); MEAN CORPUSCULAR HGB CONC 31.2 g/dl (32.0-36.5); MEAN CORPUSCULAR VOLUME 86.8 fl (80.0-96.0); MONO # 0.8 10^3/uL (0.0-0.8); MONO % 7.6 % (2.0-8.0); NEUTROPHILS # 5.7 10^3/uL (1.5-8.5); PLATELET COUNT, AUTOMATED 445 10^3/uL (150-450); RED BLOOD COUNT 5.06 10^6/uL (4.00-5.40); WHITE BLOOD COUNT 10.6 10^3/uL (4.0-10.0)
== END ==
LOC: M LAB 12:18
PROVIDERS: ATTEND Physician Assistant
DX: D48.9 Neoplasm of uncertain behavior, unspecified (principal); L65.9 Nonscarring hair loss, unspecified

== ENCOUNTER → 2022-06-27 | Outpatient (CLI) | payer OTHER ==
[2022-06-27 10:02] LABS: BASO % 0.4 % (0.0-1.0); EOS # 0.1 10^3/uL (0.0-0.5); EOS % 0.9 % (0.0-3.0); HEMATOCRIT 46.1 % (36.0-47.0); HEMOGLOBIN 14.3 g/dl (12.0-15.5); LYMPH # 2.3 10^3/uL (1.5-5.0); LYMPH % 27.4 % (24.0-44.0); MEAN CORPUSCULAR HEMOGLOBIN 27.3 pg (27.0-33.0); MONO # 0.6 10^3/uL (0.0-0.8); MONO % 6.8 % (2.0-8.0); NEUTROPHILS # 5.5 10^3/uL (1.5-8.5); NEUTROPHILS % 64.1 % (36.0-66.0); PLATELET COUNT, AUTOMATED 416 10^3/uL (150-450); RED BLOOD COUNT 5.24 10^6/uL (4.00-5.40); WHITE BLOOD COUNT 8.6 10^3/uL (4.0-10.0)
[2022-06-27 10:13] LABS: HEMATOCRIT 45.3 % (36.0-47.0)
[2022-06-27 10:27] LABS: HEMOGLOBIN A1c 5.1 %
[2022-06-27 10:55] LABS: ALBUMIN 3.7 GM/DL (3.2-5.2); ALT/SGPT 33 U/L (12-78); BILIRUBIN,TOTAL 0.5 MG/DL (0.2-1.0); BLOOD UREA NITROGEN 11 MG/DL (7-18); CALCIUM LEVEL 9.2 MG/DL (8.5-10.1); CARBON DIOXIDE LEVEL 22 MEQ/L (21-32); CHLORIDE LEVEL 106 MEQ/L (98-107); FERRITIN 44 NG/ML (8-252); GLOMERULAR FILTRATION RATE > 60.0 (>58); GLUCOSE, FASTING 82 MG/DL (70-100); IRON (FE) 60 UG/DL (50-170); MAGNESIUM LEVEL 1.8 MG/DL (1.8-2.4); PERCENT SATURATION 18.2 % (13.2-45.0); PHOSPHORUS LEVEL 3.1 MG/DL (2.5-4.9); POTASSIUM SERUM 4.5 MEQ/L (3.5-5.1); SODIUM LEVEL 138 MEQ/L (136-145); TOTAL IRON BINDING CAPACITY 329 UG/DL (250-450); TOTAL PROTEIN 7.1 GM/DL (6.4-8.2)
[2022-06-27 12:09] LABS: TOTAL 25(OH) VITAMIN D 52.3 NG/ML (30.0-100.0); VITAMIN B12 LEVEL 404 PG/ML (247-911)
== END ==
LOC: M LAB 09:13
PROVIDERS: ATTEND Surgery
DX: K91.2 Postsurgical malabsorption, not elsewhere classified (principal); E55.9 Vitamin D deficiency, unspecified; Z98.84 Bariatric surgery status

== ENCOUNTER → 2022-08-09 | Outpatient (CLI) | payer OTHER | LOC: M WHC 11:08 | PROVIDERS: ATTEND Physician Assistant | DX: Z53.9 Procedure and treatment not carried out, unspecified reason (principal) ==

== ENCOUNTER → 2023-05-03 | Outpatient (CLI) | payer OTHER, SELFPAY ==
[~2023-05-03] MED LIST changes: +DIAZ-654 PO; +DICL100G10; -DICL1GEL3; -VALI10TA PO
[2023-05-03 15:12] LABS: BASO # 0.1 10^3/uL (0.0-0.2); BASO % 0.5 % (0.0-1.0); EOS # 0.8 10^3/uL (0.0-0.5); EOS % 7.8 % (0.0-3.0); HEMATOCRIT 44.5 % (36.0-47.0); HEMOGLOBIN 14.1 g/dl (12.0-15.5); LYMPH # 3.3 10^3/uL (1.5-5.0); LYMPH % 32.4 % (24.0-44.0); MEAN CORPUSCULAR HEMOGLOBIN 29.1 pg (27.0-33.0); MEAN CORPUSCULAR HGB CONC 31.7 g/dl (32.0-36.5); MEAN CORPUSCULAR VOLUME 91.8 fl (80.0-96.0); MONO # 0.7 10^3/uL (0.0-0.8); MONO % 6.4 % (2.0-8.0); NEUTROPHILS # 5.4 10^3/uL (1.5-8.5); NEUTROPHILS % 52.7 % (36.0-66.0); PLATELET COUNT, AUTOMATED 481 10^3/uL (150-450); RED BLOOD COUNT 4.85 10^6/uL (4.00-5.40); WHITE BLOOD COUNT 10.2 10^3/uL (4.0-10.0)
[2023-05-03 15:26] LABS: HEMOGLOBIN A1c 4.9 % (4.0-6.0)
[2023-05-03 15:45] LABS: ALBUMIN 3.7 G/DL (3.2-5.2); ALKALINE PHOSPHATASE 79 U/L (46-116); ALT/SGPT 23 U/L (7.0-40); AST/SGOT 14 U/L (<34); BILIRUBIN,TOTAL 0.4 MG/DL (0.3-1.2); BLOOD UREA NITROGEN 11 MG/DL (9-23); CALCIUM LEVEL 9.6 MG/DL (8.5-10.1); CARBON DIOXIDE LEVEL 28 MMOL/L (20-31); CHLORIDE LEVEL 103 MMOL/L (98-107); CHOLESTEROL LEVEL 201 MG/DL (<200); CHOLESTEROL RISK RATIO 4.11 (<5); CREATININE FOR GFR 0.98 MG/DL (0.55-1.30); GLOMERULAR FILTRATION RATE > 60.0 (>58); GLUCOSE, FASTING 72 MG/DL (60-100); HDL CHOLESTEROL 48.8 MG/DL (>40); IRON (FE) 62 UG/DL (50-170); LDL CHOLESTEROL 134.8 MG/DL (<100); NON-HDL-C 152.2 MG/DL; PERCENT SATURATION 18.7 % (13.2-45.0); POTASSIUM SERUM 4.4 MMOL/L (3.5-5.1); SODIUM LEVEL 139 MMOL/L (136-145); TOTAL IRON BINDING CAPACITY 331 UG/DL (250-425); TRIGLYCERIDES LEVEL 87 MG/DL (<150)
[2023-05-03 15:47] LABS: TOTAL 25(OH) VITAMIN D 64.3 NG/ML (20.0-100.0); VITAMIN B12 LEVEL 591 PG/ML (211-911)
== END ==
LOC: M PLALAB 09:50
PROVIDERS: ATTEND Physician Assistant
DX: E66.3 Overweight (principal); Z68.34 Body mass index [BMI] 34.0-34.9, adult; E55.9 Vitamin D deficiency, unspecified; E03.9 Hypothyroidism, unspecified; Z13.220 Encounter for screening for lipoid disorders; Z86.2 Personal history of diseases of the blood and blood-forming organs and certain disorders involving the immune mechanism

== ENCOUNTER → 2023-06-17 | Outpatient (CLI) | payer OTHER ==
[~2023-06-17] MED LIST changes: +B-12100010 PO; +CALC500C16 PO; +ERGO500029 PO; +FLUT50SP17 INH; +IRON65TA2 PO; +MINO2.5T PO; +OMEP40CA5 PO; +PHEN15CA6 PO; +SPIR50TA4 PO; +SUMA50TA2 PO; -SYNT125T; +SYNT125T PO; +VYVA40CA3 PO
[2023-06-17 15:00] LABS: BASO % 0.3 % (0.0-1.0); EOS # 0.1 10^3/uL (0.0-0.5); EOS % 1.3 % (0.0-3.0); HEMATOCRIT 38.9 % (36.0-47.0); HEMOGLOBIN 13.1 g/dl (12.0-15.5); LYMPH # 3.2 10^3/uL (1.5-5.0); LYMPH % 33.2 % (24.0-44.0); MEAN CORPUSCULAR HEMOGLOBIN 29.1 pg (27.0-33.0); MEAN CORPUSCULAR HGB CONC 33.7 g/dl (32.0-36.5); MEAN CORPUSCULAR VOLUME 86.4 fl (80.0-96.0); MONO # 0.6 10^3/uL (0.0-0.8); MONO % 6.3 % (2.0-8.0); NEUTROPHILS # 5.6 10^3/uL (1.5-8.5); NEUTROPHILS % 58.7 % (36.0-66.0); PLATELET COUNT, AUTOMATED 378 10^3/uL (150-450); WHITE BLOOD COUNT 9.6 10^3/uL (4.0-10.0)
== END ==
LOC: M LAB 14:21
PROVIDERS: ATTEND Physician Assistant
DX: R79.89 Other specified abnormal findings of blood chemistry (principal)

== ENCOUNTER → 2023-06-19 | Outpatient (CLI) | payer MEDICAID, OTHER, SELFPAY | LOC: M WHC 12:40 | PROVIDERS: ATTEND Physician Assistant | DX: E04.2 Nontoxic multinodular goiter (principal); R59.1 Generalized enlarged lymph nodes ==

== ENCOUNTER 2023-06-26 07:44 | Day surgery (SDC) | payer OTHER ==
[~2023-06-26] VITALS: Ht 167.6 cm; Wt 88.4 kg
[~2023-06-26 07:44] MED LIST changes: +NS 1,000 ML IV ONE; +propofoL 200 MG/20 ML VIAL As Ordered ONE
[2023-06-26] MEDS ORDERED: propofoL 200 MG/20 ML VIAL As Ordered ONE (08:50)
[2023-06-26] MEDS ORDERED: MIDAZOLAM INJ 2MG/2ML VIAL As Ordered ONE (08:52)
[2023-06-26 09:07] VITALS: TEMP 97
[2023-06-26 09:45] VITALS: BP 126/78; O2SAT 100
== END 2023-06-26 10:00 | disposition home or self-care (01) ==
LOC: M SDC 07:44
PROVIDERS: ATTEND Surgery
DX: D12.3 Benign neoplasm of transverse colon (principal); K63.5 Polyp of colon; K64.1 Second degree hemorrhoids; G43.909 Migraine, unspecified, not intractable, without status migrainosus; Z98.84 Bariatric surgery status; Z79.899 Other long term (current) drug therapy; Z88.0 Allergy status to penicillin; Z88.2 Allergy status to sulfonamides; Z91.018 Allergy to other foods
CPT/HCPCS: 45385; 88305; J2250

== ENCOUNTER → 2023-07-01 | Outpatient (REF) | payer OTHER ==
[~2023-07-01] MED LIST changes: -NS 1,000 ML IV ONE; -propofoL 200 MG/20 ML VIAL As Ordered ONE
== END ==
LOC: M SFHCPLAZ 15:31
PROVIDERS: ATTEND Student in an Organized Health Care Education/Training Program
DX: J02.9 Acute pharyngitis, unspecified (principal); R09.89 Other specified symptoms and signs involving the circulatory and respiratory systems

== ENCOUNTER → 2023-08-20 | Outpatient (REF) | payer OTHER, MEDICAID ==
[~2023-08-20] MED LIST changes: -FLUT50SP17 INH; +FLUTISP INH
== END ==
LOC: M SFHCWAGY 10:13
PROVIDERS: ATTEND Nurse Practitioner Women's Health
DX: Z12.4 Encounter for screening for malignant neoplasm of cervix (principal)
CPT/HCPCS: 87624; G0123

== ENCOUNTER → 2023-08-22 | Outpatient (CLI) | payer MEDICAID, OTHER | LOC: M WHC 07:34 | PROVIDERS: ATTEND Nurse Practitioner Women's Health | DX: Z12.31 Encounter for screening mammogram for malignant neoplasm of breast (principal) ==

== ENCOUNTER → 2023-08-26 | Outpatient (CLI) | payer OTHER | LOC: M SOG 07:51 | PROVIDERS: ATTEND Physician Assistant | DX: M25.562 Pain in left knee (principal) ==

== ENCOUNTER → 2023-09-09 | Outpatient (CLI) | payer OTHER, MEDICAID | LOC: M SOG 07:50 | PROVIDERS: ATTEND Physician Assistant | DX: Z53.9 Procedure and treatment not carried out, unspecified reason (principal) ==

== ENCOUNTER → 2023-10-30 | Outpatient (CLI) | payer OTHER ==
[2023-10-30 12:00] LABS: BASO % 0.5 % (0.0-1.0); EOS # 0.1 10^3/uL (0.0-0.5); EOS % 0.9 % (0.0-3.0); HEMATOCRIT 41.2 % (36.0-47.0); HEMOGLOBIN 13.5 g/dl (12.0-15.5); LYMPH # 2.9 10^3/uL (1.5-5.0); MEAN CORPUSCULAR HEMOGLOBIN 29.2 pg (27.0-33.0); MEAN CORPUSCULAR HGB CONC 32.8 g/dl (32.0-36.5); MONO # 0.5 10^3/uL (0.0-0.8); MONO % 5.5 % (2.0-8.0); NEUTROPHILS % 58.9 % (36.0-66.0); PLATELET COUNT, AUTOMATED 380 10^3/uL (150-450); RED BLOOD COUNT 4.63 10^6/uL (4.00-5.40); WHITE BLOOD COUNT 8.6 10^3/uL (4.0-10.0)
[2023-10-30 12:29] LABS: ALBUMIN 3.2 G/DL (3.2-5.2); ALKALINE PHOSPHATASE 50 U/L (46-116); ALT/SGPT 26 U/L (7.0-40); AST/SGOT 20 U/L (<34); BILIRUBIN,TOTAL 0.3 MG/DL (0.3-1.2); BLOOD UREA NITROGEN 15 MG/DL (9-23); CALCIUM LEVEL 8.7 MG/DL (8.5-10.1); CARBON DIOXIDE LEVEL 27 MMOL/L (20-31); CHLORIDE LEVEL 104 MMOL/L (98-107); CREATININE FOR GFR 1.04 MG/DL (0.55-1.30); GLOMERULAR FILTRATION RATE > 60.0 (>58); GLUCOSE, FASTING 81 MG/DL (60-100); POTASSIUM SERUM 4.7 MMOL/L (3.5-5.1); SODIUM LEVEL 136 MMOL/L (136-145); TOTAL PROTEIN 6.6 G/DL (5.7-8.2)
[2023-10-30 12:31] LABS: FREE T4 1.44 NG/DL (0.89-1.76); THYROID STIMULATING HORMONE 1.243 uIU/ML (0.55-4.78)
== END ==
LOC: M LAB 11:28
PROVIDERS: ATTEND Physician Assistant
DX: R00.0 Tachycardia, unspecified (principal); R00.2 Palpitations; R55 Syncope and collapse

== ENCOUNTER 2023-11-21 06:12 | Day surgery (SDC) | payer OTHER ==
[~2023-11-21] VITALS: Ht 167.6 cm; Wt 92.5 kg
[~2023-11-21 06:12] MED LIST changes: +LR 1,000 ML IV SCH
[2023-11-21] MEDS ORDERED: MIDAZOLAM INJ 2MG/2ML VIAL As Ordered ONE (07:13)
[2023-11-21] MEDS ORDERED: fentaNYL 100 MCG/2 ML INJECTION As Ordered ONE (07:13)
[2023-11-21] MEDS ORDERED: ROCURONIUM BROMIDE 50MG/5ML VIAL As Ordered ONE (07:17)
[2023-11-21] MEDS ORDERED: propofoL 200 MG/20 ML VIAL As Ordered ONE (07:17)
[2023-11-21] MEDS ORDERED: LIDOCAINE 2% 100MG/5ML SDV (FOR ANES.) As Ordered ONE (07:17)
[2023-11-21] MEDS ORDERED: ONDANSETRON 4MG 2ML VIAL As Ordered ONE (07:18)
[2023-11-21] MEDS ORDERED: SUGAMMADEX SODIUM 500 MG/5 ML VIAL (BRIDION) As Ordered ONE (07:18)
[2023-11-21] MEDS ORDERED: ACETAMINOPHEN 1000MG 100ML IV BAG As Ordered ONE (07:18)
[2023-11-21] MEDS ORDERED: KETOROLAC 60MG 2ML VIAL As Ordered ONE (07:18)
[2023-11-21] MEDS: CLINDAMYCIN 900 MG in IV 1 EA IV ONE (07:45)
[2023-11-21] MEDS: HEPARIN SOD (PORCINE) 5000UNITS/ML 1ML VIAL/SYRINGE SQ ONE (07:57)
[2023-11-21] MEDS ORDERED: HYDROmorphone HCL 2MG/ML 1ML VIAL As Ordered ONE (08:39)
[2023-11-21] MEDS ORDERED: HYDROMORPHONE HCL 0.5 MG/ 0.5 ML SYRINGE IV PRN (09:55)
[2023-11-21] MEDS ORDERED: LR 1,000 ML IV SCH (09:55)
[2023-11-21] MEDS ORDERED: fentaNYL 100 MCG/2 ML INJECTION IV PRN (09:55)
[2023-11-21] MEDS ORDERED: ePHEDrine SULFATE 25 MG/5 ML(5MG/ML) SYRINGE As Ordered ONE (09:55)
[2023-11-21] MEDS ORDERED: ONDANSETRON 4MG 2ML VIAL IV PRN (09:55)
[2023-11-21] MEDS ORDERED: PHENYLephrine 500MCG 5ML (100MCG/ML) SYRINGE As Ordered ONE (09:55)
[2023-11-21] MEDS ORDERED: PERCOCET PO (10:16)
[2023-11-21] MEDS: oxyCODONE 5MG TAB PO PRN ×2 (11:08→12:37)
[2023-11-21 13:30] VITALS: BP 113/59; TEMP 97.1; O2SAT 98
== END 2023-11-21 13:37 | disposition home or self-care (01) ==
LOC: M SDC 06:12
PROVIDERS: ATTEND Surgery
DX: K44.9 Diaphragmatic hernia without obstruction or gangrene (principal); K21.9 Gastro-esophageal reflux disease without esophagitis; Z98.84 Bariatric surgery status; E03.9 Hypothyroidism, unspecified; E06.3 Autoimmune thyroiditis; G43.909 Migraine, unspecified, not intractable, without status migrainosus; Z79.899 Other long term (current) drug therapy; Z88.0 Allergy status to penicillin; Z88.2 Allergy status to sulfonamides; Z88.1 Allergy status to other antibiotic agents; Z79.890 Hormone replacement therapy
CPT/HCPCS: 43281; 81025; C9290; J0131; J0665; J0737; J1100; J1170; J1885; J2250; J2371; J2405; J3010

== ENCOUNTER → 2024-04-21 | Outpatient (CLI) | payer OTHER ==
[~2024-04-21] MED LIST changes: -LR 1,000 ML IV SCH; +PERCOCET PO
[2024-04-21 15:51] LABS: BASO % 0.5 % (0.0-1.0); EOS # 0.1 10^3/uL (0.0-0.5); EOS % 0.8 % (0.0-3.0); HEMATOCRIT 39.9 % (36.0-47.0); HEMOGLOBIN 13.2 g/dl (12.0-15.5); LYMPH # 3.2 10^3/uL (1.5-5.0); MEAN CORPUSCULAR HEMOGLOBIN 29.3 pg (27.0-33.0); MEAN CORPUSCULAR HGB CONC 33.1 g/dl (32.0-36.5); MEAN CORPUSCULAR VOLUME 88.5 fl (80.0-96.0); MONO # 0.6 10^3/uL (0.0-0.8); MONO % 7.9 % (2.0-8.0); NEUTROPHILS # 3.8 10^3/uL (1.5-8.5); NEUTROPHILS % 49.5 % (36.0-66.0); PLATELET COUNT, AUTOMATED 335 10^3/uL (150-450); RED BLOOD COUNT 4.51 10^6/uL (4.00-5.40); WHITE BLOOD COUNT 7.7 10^3/uL (4.0-10.0)
[2024-04-21 16:40] LABS: ALBUMIN 3.7 G/DL (3.2-5.2); ALKALINE PHOSPHATASE 60 U/L (46-116); ALT/SGPT 30 U/L (7.0-40); AST/SGOT 21 U/L (<34); BILIRUBIN,TOTAL 0.4 MG/DL (0.3-1.2); BLOOD UREA NITROGEN 14 MG/DL (9-23); CALCIUM LEVEL 9.6 MG/DL (8.5-10.1); CARBON DIOXIDE LEVEL 23 MMOL/L (20-31); CHLORIDE LEVEL 104 MMOL/L (98-107); CHOLESTEROL LEVEL 198 MG/DL (<200); CHOLESTEROL RISK RATIO 3.49 (<5); CREATININE FOR GFR 0.97 MG/DL (0.55-1.30); FERRITIN 60.4 NG/ML (7.3-270.7); FREE T4 1.81 NG/DL (0.89-1.76); GLOMERULAR FILTRATION RATE > 60.0 (>58); GLUCOSE, FASTING 71 MG/DL (60-100); HDL CHOLESTEROL 56.7 MG/DL (>40); LDL CHOLESTEROL 117.3 MG/DL (<100); NON-HDL-C 141.3 MG/DL; POTASSIUM SERUM 4.3 MMOL/L (3.5-5.1); SODIUM LEVEL 137 MMOL/L (136-145); THYROID STIMULATING HORMONE 1.546 uIU/ML (0.55-4.78); TRIGLYCERIDES LEVEL 120 MG/DL (<150)
== END ==
LOC: M PLALAB 12:03
PROVIDERS: ATTEND Physician Assistant
DX: R41.89 Other symptoms and signs involving cognitive functions and awareness (principal); R53.83 Other fatigue; E03.9 Hypothyroidism, unspecified; G43.109 Migraine with aura, not intractable, without status migrainosus; Z13.220 Encounter for screening for lipoid disorders

== ENCOUNTER → 2024-06-26 | Outpatient (REF) | payer OTHER | LOC: M LAB REF 17:26 | PROVIDERS: ATTEND Surgery | DX: L90.5 Scar conditions and fibrosis of skin (principal); L85.9 Epidermal thickening, unspecified ==

== ENCOUNTER → 2024-10-21 | Outpatient (CLI) | payer OTHER | LOC: M WHC 10:00 | PROVIDERS: ATTEND Nurse Practitioner Family | DX: R59.9 Enlarged lymph nodes, unspecified (principal); E04.2 Nontoxic multinodular goiter ==

== ENCOUNTER → 2024-11-24 | Outpatient (CLI) | payer OTHER ==
[2024-11-24 16:00] LABS: BASO % 0.4 % (0.0-1.0); EOS # 0.1 10^3/uL (0.0-0.5); EOS % 0.8 % (0.0-3.0); HEMATOCRIT 41.7 % (36.0-47.0); HEMOGLOBIN 14.6 g/dl (12.0-15.5); LYMPH # 3.8 10^3/uL (1.5-5.0); LYMPH % 37.3 % (24.0-44.0); MEAN CORPUSCULAR HEMOGLOBIN 30.4 pg (27.0-33.0); MEAN CORPUSCULAR VOLUME 86.7 fl (80.0-96.0); MONO % 9.6 % (2.0-8.0); NEUTROPHILS # 5.3 10^3/uL (1.5-8.5); NEUTROPHILS % 51.6 % (36.0-66.0); PLATELET COUNT, AUTOMATED 453 10^3/uL (150-450); RED BLOOD COUNT 4.81 10^6/uL (4.00-5.40); WHITE BLOOD COUNT 10.3 10^3/uL (4.0-10.0)
[2024-11-24 16:33] LABS: PERCENT SATURATION 21.6 % (13.2-45.0)
[2024-11-24 16:35] LABS: FERRITIN 309.4 NG/ML (7.3-270.7); PROLACTIN 10.22 NG/ML; THYROID STIMULATING HORMONE 0.021 uIU/ML (0.55-4.78)
[2024-11-30 01:07] LABS: TESTOSTERONE FREE (DIRECT) 1.4 pg/mL (0.1-6.4)
== END ==
LOC: M LAB 14:40
PROVIDERS: ATTEND Physician Assistant
DX: L65.9 Nonscarring hair loss, unspecified (principal)

== ENCOUNTER → 2024-11-24 | Outpatient (CLI) | payer OTHER | LOC: M CARPUL 14:37 | PROVIDERS: ATTEND Nurse Practitioner Family | DX: R00.2 Palpitations (principal) ==

== ENCOUNTER → 2024-12-22 | Outpatient (CLI) | payer OTHER ==
[2024-12-22 17:50] LABS: HEMATOCRIT 38.3 % (36.0-47.0); HEMOGLOBIN 12.6 g/dl (12.0-15.5); MEAN CORPUSCULAR HEMOGLOBIN 29.7 pg (27.0-33.0); MEAN CORPUSCULAR HGB CONC 32.9 g/dl (32.0-36.5); MEAN CORPUSCULAR VOLUME 90.3 fl (80.0-96.0); PLATELET COUNT, AUTOMATED 430 10^3/uL (150-450); RED BLOOD COUNT 4.24 10^6/uL (4.00-5.40); WHITE BLOOD COUNT 8.4 10^3/uL (4.0-10.0)
[2024-12-22 18:12] LABS: FREE T4 0.99 NG/DL (0.89-1.76); VITAMIN B12 LEVEL 742 PG/ML (211-911)
[2024-12-22 18:13] LABS: ALBUMIN 3.3 G/DL (3.2-5.2); ALKALINE PHOSPHATASE 62 U/L (35-104); ALT/SGPT 31 U/L (7.0-40); AST/SGOT 21 U/L (<34); BILIRUBIN,TOTAL 0.4 MG/DL (0.3-1.2); BLOOD UREA NITROGEN 9 MG/DL (9-23); CALCIUM LEVEL 8.9 MG/DL (8.5-10.1); CARBON DIOXIDE LEVEL 27 MMOL/L (20-31); CHLORIDE LEVEL 104 MMOL/L (98-107); CHOLESTEROL LEVEL 193 MG/DL (<200); CHOLESTEROL RISK RATIO 4.68 (<5); CREATININE FOR GFR 0.81 MG/DL (0.55-1.30); FOLATE 11.4 NG/ML (>5.4); GLOMERULAR FILTRATION RATE > 90.0 (>58); GLUCOSE, FASTING 72 MG/DL (60-100); HDL CHOLESTEROL 41.2 MG/DL (>40); LDL CHOLESTEROL 127.4 MG/DL (<100); MAGNESIUM LEVEL 1.5 MG/DL (1.8-2.4); NON-HDL-C 151.8 MG/DL; POTASSIUM SERUM 4.4 MMOL/L (3.5-5.1); SODIUM LEVEL 140 MMOL/L (136-145); TOTAL PROTEIN 6.3 G/DL (5.7-8.2); TRIGLYCERIDES LEVEL 122 MG/DL (<150)
[2024-12-22 18:14] LABS: THYROID STIMULATING HORMONE 0.371 uIU/ML (0.55-4.78)
[2024-12-22 18:36] LABS: HEMOGLOBIN A1c 4.4 % (4.0-6.0)
== END ==
LOC: M PLALAB 15:49
PROVIDERS: ATTEND Nurse Practitioner Family
DX: E03.9 Hypothyroidism, unspecified (principal)

== ENCOUNTER → 2025-01-06 | Outpatient (CLI) | payer OTHER ==
[2025-01-06 13:01] LABS: CALCIUM LEVEL 9.4 MG/DL (8.5-10.1); CREATININE FOR GFR 0.9 MG/DL (0.55-1.30); GLOMERULAR FILTRATION RATE 81.4 (>58); MAGNESIUM LEVEL 1.7 MG/DL (1.8-2.4); POTASSIUM SERUM 4.2 MMOL/L (3.5-5.1)
[2025-01-06 13:03] LABS: THYROID STIMULATING HORMONE 2.106 uIU/ML (0.55-4.78)
[2025-01-06 13:04] LABS: FREE T4 1.27 NG/DL (0.89-1.76)
== END ==
LOC: M PLALAB 10:33
PROVIDERS: ATTEND Nurse Practitioner Family
DX: Z53.9 Procedure and treatment not carried out, unspecified reason (principal)

== ENCOUNTER → 2025-01-06 | Outpatient (CLI) | payer OTHER | LOC: M WHC 09:16 | PROVIDERS: ATTEND Nurse Practitioner Family | DX: Z12.31 Encounter for screening mammogram for malignant neoplasm of breast (principal); R92.333 Mammographic heterogeneous density, bilateral breasts ==

== ENCOUNTER → 2025-01-06 | Outpatient (REF) | payer OTHER ==
[2025-01-08 14:22] LABS: HPV APTIMA Detected (Not Detected)
== END ==
LOC: M SFHCWAGY 15:01
PROVIDERS: ATTEND Nurse Practitioner Family
DX: Z12.4 Encounter for screening for malignant neoplasm of cervix (principal); R87.610 Atypical squamous cells of undetermined significance on cytologic smear of cervix (ASC-US)
CPT/HCPCS: 87624; G0123

== ENCOUNTER → 2025-04-07 | Outpatient (CLI) | payer OTHER ==
[~2025-04-07] MED LIST changes: +CLON0.5T2 PO; +FAMO1TAB11 PO; +MAGN250T17 PO; +METH27TA6 PO; +OMEP-173 PO; +SYNT100T PO; +TIRZ15PE3
[2025-04-07 19:04] LABS: MAGNESIUM LEVEL 1.6 MG/DL (1.8-2.4)
[2025-04-07 19:08] LABS: FREE T4 1.17 NG/DL (0.89-1.76)
== END ==
LOC: M PLALAB 14:35
PROVIDERS: ATTEND Nurse Practitioner Family
DX: E83.42 Hypomagnesemia (principal)

== ENCOUNTER → 2025-05-04 | Outpatient (CLI) | payer OTHER | LOC: M RAD 12:46 | PROVIDERS: ATTEND Nurse Practitioner Family | DX: G43.109 Migraine with aura, not intractable, without status migrainosus (principal); R42 Dizziness and giddiness; R55 Syncope and collapse; E04.1 Nontoxic single thyroid nodule; I65.23 Occlusion and stenosis of bilateral carotid arteries ==

== ENCOUNTER → 2025-05-17 | Outpatient (CLI) | payer OTHER ==
[2025-05-17 14:27] LABS: PLATELET COUNT, AUTOMATED 340 10^3/uL (150-450)
[2025-05-17 14:53] LABS: ALT/SGPT 42 U/L (7.0-40); AST/SGOT 27 U/L (<34); CALCIUM LEVEL 8.4 MG/DL (8.5-10.1); CARBON DIOXIDE LEVEL 25 MMOL/L (20-31); CHLORIDE LEVEL 106 MMOL/L (98-107); CREATININE FOR GFR 0.79 MG/DL (0.55-1.30); FREE T4 1.32 NG/DL (0.89-1.76); GLOMERULAR FILTRATION RATE > 90.0 (>58); IRON (FE) 152 UG/DL (50-170); MAGNESIUM LEVEL 1.7 MG/DL (1.8-2.4); PERCENT SATURATION 63.6 % (13.2-45.0); POTASSIUM SERUM 4.0 MMOL/L (3.5-5.1); SODIUM LEVEL 137 MMOL/L (136-145)
[2025-05-17 14:55] LABS: VITAMIN B12 LEVEL 1064 PG/ML (211-911)
== END ==
LOC: M PLALAB 11:38
PROVIDERS: ATTEND Nurse Practitioner Family
DX: R42 Dizziness and giddiness (principal); E83.42 Hypomagnesemia; E06.3 Autoimmune thyroiditis

== ENCOUNTER → 2025-05-26 | Outpatient (CLI) | payer OTHER ==
[~2025-05-26] MED LIST changes: +PROHANCE 279.3MG/ML 15ML VIAL ONE
== END ==
LOC: M PLAIMG 15:52
PROVIDERS: ATTEND Nurse Practitioner Family
DX: H53.9 Unspecified visual disturbance (principal); G43.109 Migraine with aura, not intractable, without status migrainosus; R42 Dizziness and giddiness; R55 Syncope and collapse
CPT/HCPCS: 70553; A9576

== ENCOUNTER → 2025-06-07 | Outpatient (CLI) | payer OTHER ==
[~2025-06-07] MED LIST changes: -PROHANCE 279.3MG/ML 15ML VIAL ONE
[2025-06-07 17:12] LABS: MAGNESIUM LEVEL 1.5 MG/DL (1.8-2.4)
[2025-06-07 17:15] LABS: FREE T4 1.3 NG/DL (0.89-1.76)
== END ==
LOC: M PLALAB 14:34
PROVIDERS: ATTEND Nurse Practitioner Family
DX: E06.3 Autoimmune thyroiditis (principal); E83.42 Hypomagnesemia

== ENCOUNTER 2025-06-11 07:33 | Day surgery (SDC) | payer OTHER ==
[~2025-06-11] VITALS: Ht 167.6 cm; Wt 63.7 kg
[2025-06-11] MEDS ORDERED: ONDANSETRON 4MG/2ML VIAL As Ordered ONE (08:18)
[2025-06-11] MEDS ORDERED: LIDOCAINE 2% 100 MG/5 ML SDV (FOR ANES.) As Ordered ONE (08:18)
[2025-06-11 08:38] VITALS: TEMP 97.1
[2025-06-11 08:48] VITALS: BP 98/50; O2SAT 98
== END 2025-06-11 08:54 | disposition home or self-care (01) ==
LOC: M OPP 07:33
PROVIDERS: ATTEND Surgery
DX: K44.9 Diaphragmatic hernia without obstruction or gangrene (principal); K31.89 Other diseases of stomach and duodenum; R07.9 Chest pain, unspecified; Z88.0 Allergy status to penicillin; Z88.1 Allergy status to other antibiotic agents; Z88.2 Allergy status to sulfonamides; Z91.018 Allergy to other foods; Z79.51 Long term (current) use of inhaled steroids; Z79.85 Long-term (current) use of injectable non-insulin antidiabetic drugs; Z79.899 Other long term (current) drug therapy
CPT/HCPCS: 43239; 88305; 91035; J2405; J3010

== ENCOUNTER 2025-07-05 08:53 | Observation (INO) | payer OTHER ==
[~2025-07-05] VITALS: Ht 165.1 cm; Wt 67.5 kg
[~2025-07-05 08:53] MED LIST changes: -FLUTISP INH; +FLUTISP NARES
[2025-07-05] MEDS ORDERED: HOME MED LIST COMPLETE! XX SCH (11:10)
[2025-07-05] MEDS ORDERED: TRET0.1C19 TOP (11:10)
[2025-07-05] MEDS: NS (Normal Saline) 0.9% 1,000 ML IV ONE ×3 (11:28→18:20)
[2025-07-05 13:26] LABS: BASO # 0.0 10^3/uL (0.0-0.2); BASO % 0.1 % (0.0-1.0); EOS # 0.0 10^3/uL (0.0-0.5); EOS % 0.0 % (0.0-3.0); LYMPH # 0.6 10^3/uL (1.5-5.0); LYMPH % 4.2 % (24.0-44.0); MONO # 0.2 10^3/uL (0.0-0.8); MONO % 1.3 % (2.0-8.0); NEUTROPHILS # 13.5 10^3/uL (1.5-8.5); NEUTROPHILS % 93.7 % (36.0-66.0); PLATELET COUNT, AUTOMATED 359 10^3/uL (150-450)
[2025-07-05 13:46] LABS: CALCIUM LEVEL 7.7 MG/DL (8.5-10.1); CARBON DIOXIDE LEVEL 26 MMOL/L (20-31); CHLORIDE LEVEL 108 MMOL/L (98-107); CREATININE FOR GFR 0.70 MG/DL (0.55-1.30); GLOMERULAR FILTRATION RATE > 90.0 (>58); POTASSIUM SERUM 4.2 MMOL/L (3.5-5.1); SODIUM LEVEL 142 MMOL/L (136-145)
[2025-07-05] MEDS: diphenhydrAMINE 50 MG/ML VIAL IV ONE (15:08)
[2025-07-05] MEDS ORDERED: ACETAMINOPHEN 325 MG TAB PO PRN (17:20)
[2025-07-05] MEDS ORDERED: MOM 30 ML SUSPENSION UDC PO PRN (17:20)
[2025-07-05] MEDS ORDERED: clonazePAM 0.5 MG TAB PO PRN (17:20)
[2025-07-05] MEDS ORDERED: MAALOX 30 ML SUSP *UDC PO PRN (17:20)
[2025-07-05] MEDS ORDERED: FLUTICASONE PROPIONATE 0.05% NASAL SPRAY 16 GM NARES PRN (17:20)
[2025-07-05 19:00] LABS: CORTISOL PM 29.0 UG/DL (3.1-16.7); FREE T4 1.18 NG/DL (0.89-1.76)
[2025-07-05] MEDS: DOCUSATE SODIUM 100 MG CAPSULE PO SCH (22:31)
[2025-07-05] MEDS: OMEPRAZOLE 20MG CAP PO SCH (22:31)
[2025-07-05] MEDS: CALCIUM CARBONATE 500 MG CHEW U/D PO SCH (22:31)
[2025-07-05] MEDS: FAMOTIDINE 20 MG TAB PO SCH (22:31)
[2025-07-05] MEDS: NS (Normal Saline) 0.9% 1,000 ML IV SCH (22:33)
[2025-07-05 23:02] VITALS: BP 109/60; TEMP 97.4; O2SAT 98
[2025-07-06] VITALS (16 sets, daily range): BP systolic 86–122; BP diastolic 52–82; TEMP 97.6–98.3; O2SAT 95–100
[2025-07-06] MEDS: EPINEPHrine INJ 1 MG/ML 1ML AMP IM STA (05:11)
[2025-07-06] MEDS: NS (Normal Saline) 0.9% 1,000 ML in IV 1 EA IV ONE (05:11)
[2025-07-06 05:34] LABS: BASO # 0.0 10^3/uL (0.0-0.2); BASO % 0.1 % (0.0-1.0); EOS # 0.0 10^3/uL (0.0-0.5); EOS % 0.0 % (0.0-3.0); LYMPH # 1.7 10^3/uL (1.5-5.0); LYMPH % 12.9 % (24.0-44.0); MONO # 0.8 10^3/uL (0.0-0.8); MONO % 6.1 % (2.0-8.0); NEUTROPHILS # 10.8 10^3/uL (1.5-8.5); NEUTROPHILS % 80.4 % (36.0-66.0); PLATELET COUNT, AUTOMATED 332 10^3/uL (150-450)
[2025-07-06 05:50] LABS: CALCIUM LEVEL 7.8 MG/DL (8.5-10.1); CARBON DIOXIDE LEVEL 25 MMOL/L (20-31); CHLORIDE LEVEL 112 MMOL/L (98-107); CREATININE FOR GFR 0.64 MG/DL (0.55-1.30); GLOMERULAR FILTRATION RATE > 90.0 (>58); MAGNESIUM LEVEL 1.5 MG/DL (1.8-2.4); POTASSIUM SERUM 4.3 MMOL/L (3.5-5.1); SODIUM LEVEL 144 MMOL/L (136-145)
[2025-07-06] MEDS: MAG SULF 1GM/100ML (MAG RUN) 1 GM in IV 1 EA IV ONE (06:33)
[2025-07-06] MEDS: ENOXAPARIN 40 MG/0.4 ML SYRINGE (J1650 PER 10MG) SC SCH (09:00)
[2025-07-06] MEDS: CYANOCOBALAMIN 500 MCG TAB PO SCH (09:20)
[2025-07-06] MEDS: FERROUS SULFATE 325 MG TAB PO SCH (09:21)
[2025-07-06] MEDS: MAGNESIUM OXIDE 400 MG TAB PO SCH (09:21)
[2025-07-06] MEDS: predniSONE 20 MG TAB PO SCH ×2 (09:21→20:10)
[2025-07-07 03:40] VITALS: BP 103/59; TEMP 97.3; O2SAT 97
[2025-07-07 07:36] VITALS: BP 119/70; TEMP 98.4; O2SAT 98
[2025-07-07 08:26] LABS: BASO # 0.0 10^3/uL (0.0-0.2); BASO % 0.1 % (0.0-1.0); EOS # 0.0 10^3/uL (0.0-0.5); EOS % 0.0 % (0.0-3.0); LYMPH # 1.9 10^3/uL (1.5-5.0); LYMPH % 16.6 % (24.0-44.0); MONO # 0.4 10^3/uL (0.0-0.8); MONO % 4.0 % (2.0-8.0); NEUTROPHILS # 8.8 10^3/uL (1.5-8.5); NEUTROPHILS % 78.8 % (36.0-66.0); PLATELET COUNT, AUTOMATED 333 10^3/uL (150-450)
[2025-07-07 08:48] LABS: CALCIUM LEVEL 7.7 MG/DL (8.5-10.1); CARBON DIOXIDE LEVEL 24 MMOL/L (20-31); CHLORIDE LEVEL 109 MMOL/L (98-107); CREATININE FOR GFR 0.58 MG/DL (0.55-1.30); GLOMERULAR FILTRATION RATE > 90.0 (>58); MAGNESIUM LEVEL 1.6 MG/DL (1.8-2.4); POTASSIUM SERUM 4.0 MMOL/L (3.5-5.1); SODIUM LEVEL 142 MMOL/L (136-145)
[2025-07-07] MEDS ORDERED: MONT5CHW10 PO (11:11)
[2025-07-07] MEDS ORDERED: PRED10TA2 PO (11:11)
[2025-07-07] MEDS ORDERED: DIPH50TA6 PO (11:11)
[2025-07-07] MEDS ORDERED: FAMO1TAB11 PO (11:11)
[2025-07-07] MEDS ORDERED: [UNRECOGNIZED DRUG - CODE] IJ (11:11)
[2025-07-08] MEDS ORDERED: VITAMIN D 50,000 UNITS CAPSULE (ERGOCALCIFEROL 1.25MG) PO SCH (09:00)
== END 2025-07-07 12:33 | disposition home or self-care (01) ==
LOC: M ED 08:53 → M ED INP 08:54 → M PCU 23:00
PROVIDERS: ADMIT Internal Medicine; ATTEND Internal Medicine
DX: T78.04XA Anaphylactic reaction due to fruits and vegetables, initial encounter (principal); E03.9 Hypothyroidism, unspecified; G43.909 Migraine, unspecified, not intractable, without status migrainosus; F41.9 Anxiety disorder, unspecified; F90.9 Attention-deficit hyperactivity disorder, unspecified type; L65.9 Nonscarring hair loss, unspecified; Z98.84 Bariatric surgery status; I95.9 Hypotension, unspecified; E83.42 Hypomagnesemia; K21.9 Gastro-esophageal reflux disease without esophagitis; Z79.85 Long-term (current) use of injectable non-insulin antidiabetic drugs; Z79.899 Other long term (current) drug therapy; Z88.0 Allergy status to penicillin; Z88.1 Allergy status to other antibiotic agents; Z88.2 Allergy status to sulfonamides; Z91.018 Allergy to other foods
CPT/HCPCS: 36415; 80048; 82533; 83605; 83735; 84145; 84439; 84443; 85025; 87040; 93306; 96361; 96372; 96374; 96375; 99285; J0166; J1200; J2919; J3475; J7512

== ENCOUNTER → 2025-07-08 | Outpatient (REF) | payer OTHER ==
[~2025-07-08] MED LIST changes: +DIPH50TA6 PO; +MONT5CHW10 PO; +PRED10TA2 PO; +TRET0.1C19 TOP; +[UNRECOGNIZED DRUG - CODE] IJ
== END ==
LOC: M SFHCPLAZ 10:54
PROVIDERS: ATTEND Family Medicine
DX: T78.2XXS Anaphylactic shock, unspecified, sequela (principal)

== ENCOUNTER → 2025-07-09 | Outpatient (REF) | payer OTHER | LOC: M SFHCPLAZ 09:54 | PROVIDERS: ATTEND Family Medicine | DX: T78.2XXS Anaphylactic shock, unspecified, sequela (principal) ==

== ENCOUNTER → 2025-07-22 | Outpatient (REF) | payer OTHER | LOC: M SFHCPLAZ 22:39 | PROVIDERS: ATTEND Family Medicine | DX: T78.40XD Allergy, unspecified, subsequent encounter (principal) ==

== ENCOUNTER → 2025-08-13 | Outpatient (CLI) | payer OTHER ==
[2025-08-13 10:01] LABS: CORTISOL AM 15.0 UG/DL (4.3-22.4)
[2025-08-13 10:04] LABS: CHOLESTEROL LEVEL 167.0 MG/DL (<200); CHOLESTEROL RISK RATIO 2.98 (<5); LDL CHOLESTEROL 99.1 MG/DL (<100); NON-HDL-C 111.1 MG/DL; TRIGLYCERIDES LEVEL 60.0 MG/DL (<150)
[2025-08-13 10:05] LABS: PROLACTIN 11.36 NG/ML
[2025-08-14 05:47] LABS: DEHYDROEPIANDROSTERONE SULFATE 48 mcg/dL (15-205)
== END ==
LOC: M LAB 08:18
PROVIDERS: ATTEND Physician Assistant
DX: L65.9 Nonscarring hair loss, unspecified (principal); T78.40XD Allergy, unspecified, subsequent encounter

== ENCOUNTER → 2025-08-13 | Outpatient (CLI) | payer OTHER | LOC: M LAB 08:20 | PROVIDERS: ATTEND Family Medicine | DX: T78.40XD Allergy, unspecified, subsequent encounter (principal); L65.9 Nonscarring hair loss, unspecified ==

== ENCOUNTER → 2025-08-15 | Outpatient (REF) | payer OTHER ==
[2025-08-18 00:06] LABS: URINE METANEPHR/CREAT RATIO 0.3 (0.0-1.0); URINE METANEPHRINES RANDOM 96.0 ug/L (Undefined); URINE NORMETANEPHRINES RANDOM 314.0 ug/L (Undefined)
== END ==
LOC: M LAB REF 14:42
PROVIDERS: ATTEND Family Medicine
DX: T78.40XD Allergy, unspecified, subsequent encounter (principal)

== ENCOUNTER → 2025-08-16 | Outpatient (CLI) | payer OTHER | LOC: M PLALAB 13:08 | PROVIDERS: ATTEND Physician Assistant | DX: L65.9 Nonscarring hair loss, unspecified (principal) ==

== ENCOUNTER → 2025-08-16 | Outpatient (CLI) | payer OTHER ==
[2025-08-16 15:12] LABS: PLATELET COUNT, AUTOMATED 424 10^3/uL (150-450)
[2025-08-16 15:15] LABS: CHOLESTEROL LEVEL 183.0 MG/DL (<200); CHOLESTEROL RISK RATIO 3.02 (<5); IRON (FE) 106.0 UG/DL (50-170); LDL CHOLESTEROL 107.2 MG/DL (<100); MAGNESIUM LEVEL 1.7 MG/DL (1.8-2.4); NON-HDL-C 122.6 MG/DL; PERCENT SATURATION 36.7 % (13.2-45.0); TRIGLYCERIDES LEVEL 77.0 MG/DL (<150)
[2025-08-16 15:18] LABS: FREE T4 1.26 NG/DL (0.89-1.76)
[2025-08-16 15:19] LABS: CORTISOL AM 7.4 UG/DL (4.3-22.4)
[2025-08-21 17:48] LABS: TESTOSTERONE FREE (DIRECT) 1.3 pg/mL (0.1-6.4); TESTOSTERONE TOTAL FOR T&D 27.0 ng/dL (2-45)
== END ==
LOC: M PLALAB 13:04
PROVIDERS: ATTEND Family Medicine
DX: D64.9 Anemia, unspecified (principal); E03.9 Hypothyroidism, unspecified; E83.42 Hypomagnesemia; T78.40XD Allergy, unspecified, subsequent encounter; L65.9 Nonscarring hair loss, unspecified

== ENCOUNTER → 2025-08-16 | Outpatient (REF) | payer OTHER | LOC: M SFHCPLAZ 12:19 | PROVIDERS: ATTEND Family Medicine | DX: Z53.9 Procedure and treatment not carried out, unspecified reason (principal) ==